=== PATIENT | female | born 1995 | race African-American/Black ===

== ENCOUNTER 2016-12-06 22:14 | Emergency (ER) | payer MEDICAID ==
[~2016-12-06] VITALS: Ht 167.6 cm; Wt 56.7 kg
[2016-12-06 22:24] VITALS: BP 116/70
[2016-12-07] MEDS ORDERED: ACETAMINOPHEN 325 MG TABLET PO ONE (01:00)
== END 2016-12-07 00:43 | disposition home or self-care (01) ==
LOC: EDUNIT# 22:14 → ER 22:18
DX: S92.352A Displaced fracture of fifth metatarsal bone, left foot, initial encounter for closed fracture (principal); X58.XXXA Exposure to other specified factors, initial encounter; Y93.89 Activity, other specified; Y92.89 Other specified places as the place of occurrence of the external cause; Y99.8 Other external cause status
CPT/HCPCS: 73610; 73630; 99284; A4606; Z7610